=== PATIENT | female | born 1940 ===

== ENCOUNTER 2022-10-02 13:40 | Outpatient (CLI) | payer MEDICARE | END 2022-10-02 13:41 | disposition home or self-care (01) | LOC: RAD 13:40 | PROVIDERS: ATTEND Transplant Surgery | DX: M48.56XA Collapsed vertebra, not elsewhere classified, lumbar region, initial encounter for fracture (principal) | CPT/HCPCS: 72070; 72100 ==

== ENCOUNTER 2022-12-22 14:35 | Outpatient (CLI) | payer MEDICARE | END 2022-12-22 14:36 | disposition home or self-care (01) | LOC: ULT 14:35 | PROVIDERS: ATTEND Internal Medicine Nephrology | DX: N18.4 Chronic kidney disease, stage 4 (severe) (principal) | CPT/HCPCS: 36415; 76770; 80048; 82306; 83540; 83550; 83970; 85014; 85018 ==